=== PATIENT | female | born 1955 | race Caucasian/White ===

== ENCOUNTER → 2017-11-05 | Outpatient (CLI) | payer OTHER ==
[~2017-11-05] MED LIST: ENJUVIA1.25 MG; LISINOPRIL-HCT1 EAC2
--- NOTE | ~2017-11-05 | EKG ---
[place] [address] [facility] [place] [place] [address] ELECTROCARDIOGRAM REPORT Name: LIDYA CHENG [id number] Admission: 11/05/17 Attend Phys: Juany Oden MD Discharge: Date of : 53 Report #: [id number] THIS REPORT FOR: //name// [facility] Test Date: 2017-11-05 Test Time: 15:20:06 Pat Name: LIDYA CHENG Department: Room: Gender: F Rehab Director Occupational Therapist: Magalis CLAY : 1955 Requested By: Juany Oden Order Number: [id number] MD: Chilo Guidry Measurements Intervals Davin Rate: 65 P: -6 RI: 153 QRS: -9 QRSD: 92 T: 3 QT: 401 QTc: 417 Interpretive Statements Sinus rhythm Anteroseptal infarct, age indeterminate Compared to ECG 11/20/2011 13:45:47 Septal Q waves are more prominent Electronically Signed On 11-05-2017 16:52:58 CDT by Chilo Guidry [email or web address] <ELECTRONICALLY SIGNED> By: Chilo Guidry MD, [facility] 11/05/17 1652 1520 1520 Chilo Guidry MD, [facility] /EPI
[2017-11-05 15:16] LABS: CALCIUM 9.1 mg/dL (8.5-10.1); CREATININE 0.7 mg/dL (0.6-1.0); POTASSIUM 3.9 mmol/L (3.5-5.1)
== END ==
LOC: LABMALL 14:46
PROVIDERS: Anesthesiology
DX: Z01.818 Encounter for other preprocedural examination (principal); I10 Essential (primary) hypertension

== ENCOUNTER → 2020-03-23 | Outpatient (CLI) | payer OTHER | LOC: LAB 09:46 | PROVIDERS: ATTEND Family Medicine | DX: Z20.828 Contact with and (suspected) exposure to other viral communicable diseases (principal) ==

== ENCOUNTER → 2020-04-14 | Outpatient (CLI) | payer OTHER | LOC: LAB 07:37 | PROVIDERS: ATTEND Family Medicine | DX: Z20.828 Contact with and (suspected) exposure to other viral communicable diseases (principal) ==